=== PATIENT | female | born 1965 | race Caucasian/White ===

== ENCOUNTER 2017-06-19 09:20 | Outpatient (CLI) | payer BC | END 2017-06-19 16:51 | disposition home or self-care (01) | LOC: SMA 09:20 | PROVIDERS: ATTEND Internal Medicine | DX: Z12.31 Encounter for screening mammogram for malignant neoplasm of breast (principal) | CPT/HCPCS: G0202 ==

== ENCOUNTER 2018-07-01 09:40 | Outpatient (CLI) | payer BC | END 2018-07-01 19:00 | disposition home or self-care (01) | LOC: SMA 09:40 | PROVIDERS: ATTEND Internal Medicine | DX: Z12.31 Encounter for screening mammogram for malignant neoplasm of breast (principal) | CPT/HCPCS: 77067 ==

== ENCOUNTER 2018-09-29 08:59 | Day surgery (SDC) | payer BC ==
[~2018-09-29] VITALS: Ht 157.5 cm; Wt 52.2 kg
[2018-09-29] MEDS ORDERED: CEFAZOLIN SOD 1 GM/ ISO 50 ML PREMIX IV ONE (10:35)
[2018-09-29] MEDS ORDERED: CEFAZOLIN 1 GM IVPB PREMIX 50 ML IV ONE ×2 (10:37→10:45)
[2018-09-29] MEDS ORDERED: ROCURONIUM BROMIDE 10 MG/ML (ZEMURON) IV ONE (10:45)
[2018-09-29] MEDS ORDERED: SEVOFLURANE 15 MIN GAS INH ONE (10:45)
[2018-09-29] MEDS ORDERED: ONDANSETRON HCL 4 MG/2 ML VIAL IVP ONE (10:45)
[2018-09-29] MEDS ORDERED: NS 1000 ML IV.SOLN IV ONE (10:45)
[2018-09-29] MEDS ORDERED: MIDAZOLAM HCL 5 MG/5 ML VIAL IVP ONE (10:45)
[2018-09-29] MEDS ORDERED: PROPOFOL 200MG/ 20ML VIAL (DIPRIVAN) IV ONE (10:45)
[2018-09-29] MEDS ORDERED: ROPIVACAINE HCL/PF 5 MG/ML 0.5% 30 ML VIAL EP ONE (10:45)
[2018-09-29] MEDS ORDERED: LR 1,000 ML IV.SOLN IV ONE (10:45)
[2018-09-29] MEDS ORDERED: WATER FOR IRRIGATION,STERILE 1,000 ML IRRIG.SOLN IR ONE (10:45)
[2018-09-29] MEDS ORDERED: DEXAMETHASONE SOD PHOSPHATE 4 MG/ML VIAL IVP ONE (10:45)
[2018-09-29] MEDS ORDERED: METOCLOPRAMIDE HCL 10 MG/2 ML VIAL IVP ONE (10:45)
[2018-09-29] MEDS ORDERED: GENTAMICIN 80 mg/ NS 100 mL IVPB IV ONE (10:45)
[2018-09-29] MEDS ORDERED: FUROSEMIDE 20 MG/2 ML VIAL IVP ONE (10:45)
[2018-09-29] MEDS ORDERED: fentaNYL CITRATE 250 MCG/5 ML AMP IV ONE (10:45)
[2018-09-29] MEDS ORDERED: ROPIVACAINE HCL/PF 0.2% EPIDURAL 200 ML PLAST..BAG EP ONE (10:45)
[2018-09-29] MEDS ORDERED: DEXTROSE 50% JECT 50 ML DISP.SYRIN IVP ONE (10:45)
[2018-09-29] MEDS ORDERED: BUPIVACAINE /PF 0.25% 30 ML VIAL INJ ONE (10:45)
[2018-09-29] MEDS ORDERED: FAMOTIDINE PF 20 MG/2 ML VIAL ONE (11:40)
[2018-09-29] MEDS ORDERED: HYDROmorphone 1 MG INJ. 1 MG/ML AMPUL IVP PRN (12:15)
[2018-09-29] MEDS ORDERED: HYDROmorphone 2 MG/ML VIAL IVP PRN ×2 (12:15)
[2018-09-29] MEDS ORDERED: LR 1,000 ML IV SCH (12:15)
[2018-09-29] MEDS ORDERED: MEPERIDINE HCL/PF 25 MG/ML DISP.SYRIN IVP PRN (12:15)
[2018-09-29] MEDS ORDERED: OXYCODONE/ACETAMINOPHEN 5-325 TABLET PO PRN ×2 (13:45)
[2018-09-29] MEDS ORDERED: ONDANSETRON HCL 4 MG/2 ML VIAL IVP PRN (13:45)
[2018-09-29] MEDS ORDERED: HYDROcodone/ACETAMIN 5-325 MG TAB (NORCO/ VICODIN) PO PRN (13:45)
[2018-09-29] MEDS ORDERED: HYDROmorphone 2 MG/ML VIAL ONE (14:22)
[2018-09-29 15:06] VITALS: BP_SYST 118
[2018-09-29] MEDS ORDERED: KETOROLAC TROMETHAMINE 30 MG VIAL IVP ONE (16:00)
[2018-09-29] MEDS ORDERED: KETOROLAC TROMETHAMINE 30 MG VIAL ONE (16:06)
[2018-09-29] MEDS ORDERED: SIMETHICONE 80 MG TAB.CHEW PO SCH (17:00)
== END 2018-09-29 16:45 | disposition home or self-care (01) ==
LOC: SDS 08:59 → SMU 09:00 → SDS 16:45
PROVIDERS: ATTEND Specialist
DX: N87.1 Moderate cervical dysplasia (principal); Z79.899 Other long term (current) drug therapy; Z98.890 Other specified postprocedural states; I10 Essential (primary) hypertension; K21.9 Gastro-esophageal reflux disease without esophagitis
CPT/HCPCS: 58571; 64488; 88307; 93005; C1727; J0690; J1100; J1170; J1580; J1885; J1940; J2250; J2405; J2704; J2765; J3010; J3490 ×2; J7030; J7120; E0190

== ENCOUNTER 2022-04-17 09:09 | Outpatient (CLI) | payer OTHER | END 2022-04-17 20:51 | disposition home or self-care (01) | LOC: SMA 09:09 | PROVIDERS: ATTEND Orthopaedic Surgery | DX: Z12.31 Encounter for screening mammogram for malignant neoplasm of breast (principal) | CPT/HCPCS: 77067 ==